=== PATIENT | female | born 1950 | race Two or more races ===

== ENCOUNTER 2017-01-06 15:44 | Outpatient (CLI) | payer MEDICARE ==
--- NOTE | 2017-01-06 16:18 | Diagnostic Imaging Report ---
Indication: COUGH Technique: 2 views of the chest Comparison: none. Findings: Lungs and pleural spaces are clear. Heart size is normal. There are mild degenerative changes of the thoracic spine Impression: No acute process
== END 2017-01-06 17:44 | disposition home or self-care (01) ==
LOC: RAD 15:44
DX: R05 Cough (principal)
CPT/HCPCS: 71020